=== PATIENT | female | born 1970 | race Caucasian/White ===

== ENCOUNTER 2022-07-05 01:45 | Day surgery (SDC) | payer OTHER, SELFPAY ==
[2022-06-22 14:09] VITALS: BMI 41.2
[2022-07-05 08:57] VITALS: BP 132/82; PULSE 76; RESP 18; TEMP 36.3; O2SAT 100; BMI 40.7
[2022-07-05] MEDS: LACTATED RINGERS 1,000 ML 150 ML IV CONT (09:09)
--- NOTE | 2022-07-05 09:30 | P.PNAN_ITS ---
Anes - Initial Pre Proc Eval Procedure: Operation Date: 07/05/22 10:15 Proposed Procedures p Screening Colonoscopy - Jez Mishra MD Date/Time: 07/05/22 09:30 Surgeon: Jez Mishra MD Pre Op Diagnosis: neoplasm screening Patient Data Age: 51 Gender: F Height: 1.63 m Weight: 107.6 kg Last Vital Signs Temp 97.4 F L 07/05/22 08:57 Pulse 76 07/05/22 08:57 Resp 18 07/05/22 08:57 BP 132/82 07/05/22 08:57 Pulse Ox 100 07/05/22 08:57 O2 Del Method Room Air 07/05/22 08:57 Allergies Allergy/AdvReac Type Severity Reaction Status Date / Time No Known Allergies Allergy Verified 07/05/22 08:56 Home Medications Medication Instructions Recorded Confirmed Type atorvastatin 10 mg tablet 10 mg PO DAILY 06/22/22 06/22/22 History ergocalciferol (vitamin D2) 1,250 1,250 mcg PO WEEKLY 06/22/22 06/22/22 History mcg (50,000 unit) capsule lisinopril 20 mg tablet 20 mg PO DAILY 06/22/22 06/22/22 History topiramate 25 mg tablet 25 mg PO BID 06/22/22 06/22/22 History Patient hx anesthesia problems: none Family hx anesthesia problems: none Results Review: All pre-operative results and documents have been reviewed as part of the pre- operative evaluation. [facility] Social History Social History Smoking status: Former smoker Tobacco type: cigarettes Alcohol intake: current Drinks per week: 3 Substance use type: does not use Living arrangements: with family Spiritual care concerns: No Anes - Eval Final PreProcedure Day of Procedure 07/05/22 09:30 Patient weight: morbidly obese Heart: regular rate and rhythm Lungs: clear to auscultation Airway: Mallampati scale class II Neurological: alert and oriented Last oral intake: >/= 8 hours ASA classification: III Emergent: no Anesthetic plan: proceed Anesthesia type and monitoring: general GIVS and standard monitoring Results Review: All pre-operative results and documents have been reviewed as part of the pre- operative evaluation. Informed Consent: The patient's anesthetic plan and its attendant risks and benefits were discussed with the patient/family/POA. Questions were solicited and answers provided to the satisfaction of the patient/family/POA.
--- NOTE | 2022-07-05 09:52 | PM.HPGS ---
History of Present Illness History of Present Illness Consent: Risks, benefits, and alternatives have been discussed and questions answered. Patient agrees to proceed with procedure. Chief complaint: neoplasm screening Narrative: Lm Riddle is a 51 year old female here for first screening colonoscopy Review of Systems Constitutional: Constitutional: Denies headache(s) and Denies weakness Eyes: Eyes: Denies blurry vision ENT: Reports Normal hearing present, Denies headache(s) and Denies neck pain Cardiovascular: Cardiovascular: Denies chest pain and Denies dyspnea Respiratory: Respiratory: Denies dyspnea Gastrointestinal: Gastrointestinal: Reports no additional gastrointestinal complaints Genitourinary: Genitourinary: Denies dysuria Musculoskeletal: Musculoskeletal: Denies neck pain Integumentary/Breasts: Skin/Breast: Denies dry skin Neurologic: Reports Normal hearing present, Denies headache(s) and Denies weakness Psychiatric: Psychiatric: Denies anxiety Endocrine: Endocrine: Denies change in body appearance Hematologic/Lymphatic: Hematologic/Lymphatic: Denies easy bleeding Allergic/Immunologic: Allergic/Immunologic: Denies urticaria [facility] Past Medical History Medical History (Updated 07/05/22 @ 09:53 by Jez Mishra MD) Colon cancer screening Social History Social History Smoking status: Former smoker Tobacco type: cigarettes Alcohol intake: current Drinks per week: 3 Substance use type: does not use Living arrangements: with family Spiritual care concerns: No Meds Home Medications and Allergies Home Medications Medication Instructions Recorded Confirmed Type atorvastatin 10 mg tablet 10 mg PO DAILY 06/22/22 06/22/22 History ergocalciferol (vitamin D2) 1,250 1,250 mcg PO WEEKLY 06/22/22 06/22/22 History mcg (50,000 unit) capsule lisinopril 20 mg tablet 20 mg PO DAILY 06/22/22 06/22/22 History topiramate 25 mg tablet 25 mg PO BID 06/22/22 06/22/22 History Allergies Allergy/AdvReac Type Severity Reaction Status Date / Time No Known Allergies Allergy Verified 07/05/22 08:56 Vital Signs Vital Signs - 24 hr 07/05/22 08:57 Temperature 97.4 F L Pulse Rate 76 Respiratory Rate 18 Blood Pressure 132/82 Pulse Oximetry 100 Oxygen Delivery Room Air Exam Const: General: comfortable and no acute distress HENMT: Face/Nose/Sinus: Normal nares present Eyes: General: appearance normal, both eyes and all related structures Neck: Neck: no JVD Resp: Auscultation: clear to auscultation bilaterally Cardio: Rate: regular rate Rhythm: regular rhythm GI: Inspection: non-distended GI Palp: Yes Soft to palpation Skin: General skin exam: normal color Neuro: General: gait normal Speech: normal speech Extrem: General: normal to inspection Psych: Mental Status: mental status grossly normal Assessment and Plan Assessment and plan (1) Colon cancer screening: Code(s): Z12.11 - Encounter for screening for malignant neoplasm of colon Status: Acute Assessment and Plan: colonoscopy
[2022-07-05 10:14] VITALS: BP 126/71; PULSE 69; RESP 21; O2SAT 100
[2022-07-05 10:24] VITALS: BP 122/76; PULSE 66; RESP 20; O2SAT 100
[2022-07-05 10:34] VITALS: BP 123/77; PULSE 70; RESP 21; O2SAT 100
== END 2022-07-05 10:41 | disposition home or self-care (01) ==
PROVIDERS: PCP Internal Medicine Endocrinology, Diabetes & Metabolism; Visit Provider Internal Medicine Gastroenterology
PROC: 0DJD8ZZ Inspection of Lower Intestinal Tract, Via Natural or Artificial Opening Endoscopic (ICD-10-PCS; CPT 45378; principal; 2022-07-05 10:15)
DX: Z12.11 Encounter for screening for malignant neoplasm of colon (principal); D12.4 Benign neoplasm of descending colon; K57.30 Diverticulosis of large intestine without perforation or abscess without bleeding; K64.8 Other hemorrhoids; Z87.891 Personal history of nicotine dependence; E66.01 Morbid (severe) obesity due to excess calories; Z68.41 Body mass index [BMI] 40.0-44.9, adult
CPT/HCPCS: 45385; 88305; J2704; J7120

== ENCOUNTER 2025-02-22 14:38 | Emergency (ER) | payer OTHER, SELFPAY ==
--- NOTE | ~2025-02-22 | CT_ITS ---
EXAMINATION: CT diagnostic chest w con DATE: 02/22/2025 16:24 INDICATION: nodule TECHNIQUE: Computed tomography (CT) of the chest was performed without intravenous contrast. Addition al 3D reconstructions utilizing coronal maximum intensity projection (MIP) were performed. Automated exposure control and iterative reconstruction technique were employed. The dose-length product was 28 4.51 mGy-cm. COMPARISON: Chest radiograph dated 02/22/2025 FINDINGS: Calcified left upper lobe nodule consistent with old granulomatous disease and which accounts for the nodular opacity of concern on prior chest radiograph. Lungs are otherwise clear with no other suspic ious pulmonary nodules, pneumonia, pulmonary edema or pleural effusion. Heart size is normal. No aureliano cardial effusion. Thoracic aorta is normal caliber with no dissection. There are also calcified left hilar and mediastinal lymph nodes consistent with old granulomatous disease. No pathologically enlarg ed thoracic lymphadenopathy. Visualized upper abdomen is unremarkable. Mild thoracic spondylosis. IMPRESSION: 1. Nodular opacity of concern on prior chest radiographs corresponds to a benign calcified granuloma. No concerning pulmonary nodules or acute cardiopulmonary disease. Reviewed, dictated and finalized at location A. IMPRESSION: 1. Nodular opacity of concern on prior chest radiographs corresponds to a benig n calcified granuloma. No concerning pulmonary nodules or acute cardiopulmonary disease.
--- NOTE | ~2025-02-22 | XR_ITS ---
EXAMINATION: XR chest 2V 02/22/2025 15:23 INDICATION: Chest pain PROCEDURE: 2 view chest COMPARISON: No prior studies for comparison. FINDINGS: There is a focal nodular asymmetry at the left apex. The cardiomediastinal silhouette is wi thin normal limits. There are no pleural effusions. There is no pneumothorax suspected. IMPRESSION: 1: Focal nodular asymmetry at the left apex. Correlation with CT chest recommended to exclude parenc hymal nodule. Reviewed, dictated and finalized at location B. IMPRESSION: 1: Focal nodular asymmetry at the left apex. Correlation with CT chest recomme nded to exclude parenchymal nodule.
--- NOTE | 2025-02-22 14:39 | ECG_ITS ---
Test Date: 2025-02-22 14:45:19 Measurements Intervals [place] Rate: 73 P: 38 HI: 154 QRS: 3 QRSD: 80 T: 30 QT: 376 QTc: 416 Interpretive Statements SINUS RHYTHM LOW QRS VOLTAGE IN PRECORDIAL LEADS [QRS DEFLECTION < 1.0 mV IN CHEST LEADS] No previous ECG available for comparison Electronically Signed On 02-23-2025 17:05:46 CDT by Lneny Gramajo M.D.
[2025-02-22 14:40] VITALS: BP 121/96; PULSE 79; RESP 18; TEMP 36.4; O2SAT 99
--- NOTE | 2025-02-22 14:49 | ED.CHESTPAIN ---
HPI - Chest Pain General Chief Complaint: Chest Pain Stated Complaint: Chest pain x 2hrs-no history Time Seen by Provider: 02/22/25 15:26 Focused HPI: Patient is a 54-year-old female who presents to the ER with chest pain that started abruptly around 1:00 p.m. today. She reports the chest pain resolved but has now settled in her chest as a feeling of ?anxiety and possible indigestion. Patient denies any recent fevers, shortness of breath, left shoulder pain, lower extremity edema or cough. She endorses a history of high blood pressure and takes BP medication daily. GENERAL: Well-appearing, well-nourished, and in no acute distress. HEAD: Normocephalic, atraumatic. CHEST: Clear to auscultation. ?No respiratory distress. HEART: Regular rate and rhythm.? NEURO: ?Alert and oriented x3. Patient screened in triage and initial orders placed.? ?Additional care and disposition to be based upon?diagnostic testing and treatment. Related Data Home Medications ?Medication ?Instructions ?Recorded ?Confirmed ?Last Taken ?Type atorvastatin 10 mg tablet 10 mg PO DAILY 06/22/22 06/22/22 Unknown History ergocalciferol (vitamin D2) 1,250 1,250 mcg PO WEEKLY 06/22/22 06/22/22 Unknown History mcg (50,000 unit) capsule lisinopril 20 mg tablet 20 mg PO DAILY 06/22/22 06/22/22 Unknown History topiramate 25 mg tablet 25 mg PO BID 06/22/22 06/22/22 Unknown History Allergies Allergy/AdvReac Type Severity Reaction Status Date / Time No Known Allergies Allergy Verified 02/22/25 14:38 [facility] Past Medical History Medical History (Updated 02/23/25 @ 00:01 by Monisha Lugo) Colon cancer screening Social History Social History Smoking status: Former smoker Tobacco type: cigarettes Alcohol intake: current Drinks per week: 3 Substance use type: does not use Living arrangements: with family Spiritual care concerns: No Course Vital Signs Vital signs: Vital Signs Temperature 36.4 C 02/22/25 14:40 Pulse Rate 79 02/22/25 14:40 Respiratory Rate 18 02/22/25 14:40 Blood Pressure 121/96 H 02/22/25 14:40 Pulse Oximetry 99 02/22/25 14:40 Oxygen Delivery Room Air 02/22/25 14:40 Temperature 36.4 C 02/22/25 14:40 Pulse Rate 70 02/22/25 19:05 Respiratory Rate 16 02/22/25 19:05 Blood Pressure 115/76 02/22/25 19:05 Pulse Oximetry 99 02/22/25 19:05 Oxygen Delivery Room Air 02/22/25 15:14 MDM - Chest Pain Lab Data 02/22/25 15:08 02/22/25 15:08 Labs: Lab Results 02/22/25 02/22/25 Range/Units 15:08 18:03 WBC 6.1 (4.5-10.0) K/mm3 RBC 4.62 (4.2-5.4) M/mm3 Hgb 13.5 (12.0-15.0) g/dL Hct 41.0 (37.0-47.0) % MCV 88.7 (80-100) fl MCH 29.2 (26-34) pg MCHC 32.9 (32-36) g/dl RDW 13.5 (11.5-14.5) % Plt Count 260 (150-375) k/mm3 MPV 10.0 (7.4-10.4) fl Immature Gran % (Auto) 0.2 (0-0.5) % Neut % (Auto) 54.9 (45.5-73.1) % Lymph % (Auto) 37.0 (18.3-44.2) % [place] % (Auto) 6.9 (2.6-8.5) % Eos % (Auto) 0.3 (0-4.4) % Baso % (Auto) 0.7 (0.2-1.2) % Lymph # (Auto) 2.24 (0.9-3.2) K/mm3 [place] # (Auto) 0.4 (0.1-0.6) K/mm3 Eos # (Auto) 0.0 (0-0.3) K/mm3 Baso # (Auto) 0.0 (0.0-0.1) K/mm3 Abs Immat Gran (auto) 0.01 (0.00-0.031) K/mm3 Absolute Neuts (auto) 3.3 (1.3-6.7) K/mm3 Absolute Nucleated RBC 0.000 (0.0-0.012) K/mm3 Nucleated RBC % 0.0 (0.0-0.2) % PT 13.3 (11.1-14.7) Seconds INR 1.0 APTT 27.6 (22.3-36.8) Seconds Sodium 140 (137-145) mmol/L Potassium 3.7 (3.4-5.0) mmol/L Chloride 108 H (98-107) mmol/L Carbon Dioxide 21 L (22-30) mmol/L Anion Gap 11 (4-12) mmol/L BUN 17 (7-17) mg/dL Creatinine 0.74 (0.7-1.0) mg/dL Estim Creat Clear Calc 83 ml/min Estimated GFR > 60 (59 - ) Glucose 85 (65-110) mg/dL Calcium 9.4 (8.4-10.2) mg/dL Total Bilirubin 0.6 (0.2-1.3) mg/dL AST 29 (14-36) U/L ALT 24 (6-35) U/L Alkaline Phosphatase 60 (38-126) U/L Troponin I < 0.012 < 0.012 (0.000-0.034) ng/mL Total Protein 8.0 (6.3-8.2) g/dL Albumin 4.9 (3.5-5.1) g/dL Lipase 334 H (23-300) U/L Discharge Plan Discharge Clinical Impression: Atypical chest pain Patient Disposition: Home Condition: Stable Instructions: Antibiotic Form, Chest Wall Pain (ED) Patient Language: Spanish Prescriptions: No Action atorvastatin 10 mg tablet 10 mg PO DAILY lisinopril 20 mg tablet 20 mg PO DAILY topiramate 25 mg tablet 25 mg PO BID ergocalciferol (vitamin D2) 1,250 mcg (50,000 unit) capsule 1,250 mcg PO WEEKLY Follow-up/Referrals: Jesse,Zac Venegas MD [Primary Care Provider] -
--- OUTSIDE RECORDS SUMMARY | 2025-02-22 14:51 | XMS_ITS | Referral Summary ---
Author Organization [facility] Address [address] [place] [address] Care Team Providers Care Store Consultant Name Role Phone Zac Molina MD Primary Care Provider + Encounters Date Type Department Care Team Description 01/28/2025 Telephone [facility] [id number] [place] [address] Arabella De La Vega NP PA FOR WEGOVY 2.4MG (Lm Riddle ([place]: [id number]) /Rx #: [id number] /Wegovy 2.4MG/0.75ML auto-injectors //) 01/28/2025 9:00 AM CDT Office Visit [facility] [facility] [address] [place] [address] Arabella De La Vega NP Hyperlipidemia, unspecified hyperlipidemia type (Primary Dx); NORM (obstructive sleep apnea); Essential hypertension; Frequent headaches; BMI 36.0-36.9,adult from Last 3 Months Allergies No known active allergies Medications azelastine (ASTELIN) 137 mcg (0.1 %) nasal spray ADMINISTER 1 SPRAY INTO EACH NOSTRIL 2 TIMES A DAY DIRECTED 30 mL 1 07/01/20 23 Active fluticasone propionate (FLONASE) 50 mcg/actuation nasal spray SPRAY 2 SPRAYS INTO EACH NOSTRIL EVERY DAY 16 mL 1 07/01/20 23 Active ibuprofen 200 mg tab/cap Take 1 tablet/capsule (200 mg total) by mouth every 6 (six) hours as needed for pain 12/23/19 23 Active acetaminophen (Tylenol Extra Strength) 500 mg tablet Take 1 tablet (500 mg total) by mouth every 4 (four) hours as needed 12/23/19 23 Active amLODIPine (NORVASC) 2.5 mg tablet Take 1 tablet (2.5 mg total) by mouth daily 90 tablet 3 07/30/20 24 Active Wegovy 2.4 mg/0.75 mL auto-injector INJECT 0.75 ML (2.4 MG TOTAL) UNDER THE SKIN EVERY 7 DAYS 9 mL 1 01/08/20 25 Active topiramate (TOPAMAX) 25 mg tablet Take 1 tablet (25 mg total) by mouth daily 90 tablet 1 01/29/20 25 Active atorvastatin (LIPITOR) 10 mg tabletIndications: Hyperlipidemia, unspecified hyperlipidemia type Take 1 tablet (10 mg total) by mouth daily 90 tablet 3 01/29/20 25 Active lisinopriL (PRINIVIL,ZESTRIL) 20 mg tablet Take 1 tablet (20 mg total) by mouth daily 90 tablet 3 01/29/20 25 Active lisinopriL (PRINIVIL,ZESTRIL) 20 mg tablet TAKE 1 TABLET BY MOUTH EVERY DAY 90 tablet 3 02/27/20 24 025 Discontin ued(Reord er) atorvastatin (LIPITOR) 10 mg tabletIndications: Hyperlipidemia, unspecified hyperlipidemia type TAKE 1 TABLET BY MOUTH EVERY DAY 90 tablet 3 02/27/20 24 025 Discontin ued(Reord er) topiramate (TOPAMAX) 12.5 mg split tablet Take 2 half tablet (25 mg total) by mouth daily 01/02/20 24 025 Discontin ued(Alter fabrizio therapy) Active Problems Problem Noted Date Diagnosed Date BMI 36.0-36.9,adult 01/28/2025 Assessment & Plan (01/28/2025 9:21 AM CDT): Continue Wegovy 2.4mg weekly Highest weight 241 lbs, down to 212 lbs today Focus on protein and strength training NORM (obstructive sleep apnea) 01/27/2023 Assessment & Plan (01/28/2025 9:17 AM CDT): Encouraged to use CPAP regularly Assessment & Plan (07/30/2024 9:33 AM CDT): Continue CPAP Assessment & Plan (09/12/2023 9:26 AM LINK CUTTER): Continue CPAP Assessment & Plan (03/10/2023 9:56 AM CDT): Is awaiting supplies, will reach out to Neuro Frequent headaches 11/10/2022 Assessment & Plan (01/28/2025 9:18 AM CDT): Resume topamax 25mg HS Assessment & Plan (11/10/2022 10:04 AM LINK CUTTER): Hold Topamax Trial amlodipine 2.5mg Continue lisinopril Sleep Med referral We discussed sleep hygiene Hyperlipidemia 11/06/2021 Assessment & Plan (01/28/2025 9:17 AM CDT): Continue atorvastatin 10mg daily Assessment & Plan (11/06/2021 9:34 AM LINK CUTTER): At goal, continue current meds Encounter for screening mamm ogram for malignant neoplasm of breast 11/06/2021 Assessment & Plan (07/30/2024 9:31 AM CDT): MMG referral Assessment & Plan (11/06/2021 9:35 AM LINK CUTTER): Mammogram entered Essential hypertension 11/06/2021 Assessment & Plan (01/28/2025 9:17 AM CDT): Continue lisinopril and amlodipine Assessment & Plan (07/30/2024 9:34 AM CDT): Continue lisinopril 20mg and amlodipine 2.5mg and daily Labs due January 2025 Assessment & Plan (09/12/2023 9:25 AM LINK CUTTER): At goal continue lisinopril 20mg and amlodipine 2.5mg daily Assessment & Plan (03/10/2023 9:55 AM CDT): At goal Continue amlodipine 2.5mg and lisinopril 20 mg daily Current on eye exam Assessment & Plan (11/06/2021 9:35 AM LINK CUTTER): At goal on current meds, continue Encouraged 150 min/weekly of moderate intensity activity Labs due Resolved Problems Problem Noted Date Diagnosed Date Resolved Date Dysfunction of both eustachian tubes 06/08/2023 09/12/2023 Assessment & Plan (06/08/2023 12:02 PM CDT): Nasal sprays BID (use, technique, s/e reviewed) OTC anti-histamine daily IFG (impaired fasting glucose) 11/10/2022 07/30/2024 Assessment & Plan (09/12/2023 9:25 AM LINK CUTTER): Repeat A1C with labs Assessment & Plan (03/10/2023 9:40 AM CDT): A1C 5.8% Assessment & Plan (11/10/2022 10:02 AM LINK CUTTER): A1C 5.9% Discussed diet and activity Routine general medical exam ination at a health care facility 11/06/2021 09/12/2023 Assessment & Plan (12/15/2021 4:51 PM CDT): Colonoscopy entered Mammogram due 150 min/weekly of moderate intensity activity Labs Current on vaccinations Immunizations Immunization Administration Dates Next Due Pfizer SARS-CoV-2 Monovalent Vaccination (12+ Yrs) PURPLE 08/07/2021,10/13/2020,09/23/2020 Pfizer Sars-Cov-2 Bivalent V accination (12+ YRS) 09/03/2022 Social History Tobacco Use Types Packs/Day Years Used Date Smoking Tobacco: Former Cigarettes 0.5 10 2 - 2014 Smokeless Tobacco: Never Alcohol Use Standard Drinks/Week Comments No 0 (1 standard drink = 0.6 oz pur e alcohol) Comments Unknown Sex and Gender Information Value Date Recorded Sex Assigned at Not on file Legal Sex Female 12:59 AM LINK CUTTER Gender Identity Female 11/05/2021 2:29 PM LINK CUTTER Sexual Orientation Straight 11/05/2021 2: 29 PM LINK CUTTER Last Filed Vital Signs Vital Sign Reading Time Taken Comments Blood Pressure 118/76 01/28/2025 8:56 AM CDT Pulse 78 01/28/2025 8:56 AM CDT Temperature - - Respiratory Rate - - Oxygen Saturation 98% 01/28/2025 8:56 AM CDT Inhaled Oxygen Concentration - - Weight 96.2 kg (212 lb) 01/28/2025 8:56 AM CDT Height 162.6 cm (5' 4 ) 01/28/2025 8:56 AM CDT Body Mass Index 36.39 01/28/2025 8:56 AM CDT Plan of Treatment Scheduled Procedures Name Priority Associated Diagnoses Date/Ti me COLONOSCOPY Colon cancer screening Procedures Procedure Name Priority Date/Time Associated Diagnosis Comments POCT GLUCOSE 48362 Routine 01/28/2025 8:56 AM CDT Hyperlipidemia, unspecified hyperlipidemia type POCT LIPID PANEL Routine 01/28/2025 8:56 AM CDT Hyperlipidemia, unspecified hyperlipidemia type SCREENING MAMMOGRAM BILATERAL W JUAN Schedule Routine, Read Routine (OP Routine) 10/22/2024 11:04 AM LINK CUTTER Encounter for screening mammogram for malignant neoplasm of breast from Last 3 Months or Most Recently Relevant to Health Maintenance Results * POCT glucose (01/28/2025 8:56 AM CDT) Glucose Blood, POC 92 mg/dL Blood 01/28/2025 8:56 AM CDT Arabella De La Vega NP POINT OF CARE TEST ORDER FLOR Final Result * POCT lipid panel (01/28/2025 8:56 AM CDT) HDL, POC 44 mg/dL Triglycerides, POC 103 mg/dL LDL Cholesterol POC 112 mg/dL Chol/HDL Ratio, POC 4 Non-HDL Cholesterol, POC 132 mg/dL Cholesterol Total, POC 177 mg/dL Capillary blood 01/28/2025 8:56 AM CDT Arabella De La Vega NP POINT OF CARE TEST ORDER FLOR Final Result * Screening Mammogram Bilateral W Juan (10/22/2024 11:04 AM LINK CUTTER) Anatomical Region Laterality Modality Breast Bilateral Mammography Narrative 10/23/2024 12:38 PM LINK CUTTER Mammogram Technique: Bilateral Digital Breast Tomosynthesis, Bilateral C-view 2D Screening mammogram. Views obtained: bilateral craniocaudal and bilateral mediolateral oblique. Computer Aided Detection was performed. Mammogram Findings: The present examination has been compared to prior imaging studies performed at [facility] on 01/19/2018, 01/25/2019 and 06/15/2022. There are scattered areas of fibroglandular density. There is no suspicious abnormality in either breast. Impression: There is no mammographic evidence of malignancy. Annual screening mammography is recommended. OVERALL FINAL ASSESSMENT: BI-RADS CATEGORY 1: Negative. Procedure Note Oriana Jiménez MD - 10/23/2024 Mammogram Technique: Bilateral Digital Breast Tomosynthesis, Bilateral C-view 2D Screening mammogram. Views obtained: bilateral craniocaudal and bilateral mediolateral oblique. Computer Aided Detection was performed. Mammogram Findings: The present examination has been compared to prior imaging studies performed at [facility] on 01/19/2018, 01/25/2019 and 06/15/2022. There are scattered areas of fibroglandular density. There is no suspicious abnormality in either breast. Impression: There is no mammographic evidence of malignancy. Annual screening mammography is recommended. OVERALL FINAL ASSESSMENT: BI-RADS CATEGORY 1: Negative. Arabella De La Vega NP IMG MAMMO PROCEDURES Fin al Result from Last 3 Months or Most Recently Relevant to Health Maintenance Insurance [employer] OPEN ACCESS CIGNA OPEN ACCESS CIGNA OPEN ACCESS [employer] OPEN ACCESS Care Teams Store Consultant Relationship Specialty Start Date End Date Zac Molina MD PCP - General 01/12/18
--- OUTSIDE RECORDS SUMMARY | 2025-02-22 14:51 | XMS_ITS | Clinical Summary ---
Author Organization [facility] Address [address] [place] [address] Care Team Providers Care Nylon Mender Name Role Phone Zac Molina MD Primary Care Provider + Allergies No known active allergies Medications azelastine [...] CPAP Assessment & Plan (09/12/2023 9:26 AM FLAME HARDENING MACHINE OPERATOR): Continue CPAP Assessment & Plan (03/10/2023 9:56 AM CDT): Is awaiting supplies, will reach out to Neuro Frequent headaches 11/10/2022 Assessment & Plan (01/28/2025 9:18 AM CDT): Resume topamax 25mg HS Assessment & Plan (11/10/2022 10:04 AM FLAME HARDENING MACHINE OPERATOR): Hold Topamax Trial amlodipine 2.5mg Continue lisinopril Sleep Med referral We discussed sleep hygiene Hyperlipidemia 11/06/2021 Assessment & Plan (01/28/2025 9:17 AM CDT): Continue atorvastatin 10mg daily Assessment & Plan (11/06/2021 9:34 AM FLAME HARDENING MACHINE OPERATOR): At goal, continue current meds Encounter for screening mamm ogram for malignant neoplasm of breast 11/06/2021 Assessment & Plan (07/30/2024 9:31 AM CDT): MMG referral Assessment & Plan (11/06/2021 9:35 AM FLAME HARDENING MACHINE OPERATOR): Mammogram entered Essential hypertension 11/06/2021 Assessment & Plan (01/28/2025 9:17 AM CDT): Continue lisinopril and amlodipine Assessment & Plan (07/30/2024 9:34 AM CDT): Continue lisinopril 20mg and amlodipine 2.5mg and daily Labs due January 2025 Assessment & Plan (09/12/2023 9:25 AM FLAME HARDENING MACHINE OPERATOR): At goal continue lisinopril 20mg and amlodipine 2.5mg daily Assessment & Plan (03/10/2023 9:55 AM CDT): At goal Continue amlodipine 2.5mg and lisinopril 20 mg daily Current on eye exam Assessment & Plan (11/06/2021 9:35 AM FLAME HARDENING MACHINE OPERATOR): At goal on current meds, continue Encouraged 150 min/weekly of moderate intensity activity Labs due Resolved Problems Problem Noted Date Diagnosed Date Resolved Date Dysfunction of both eustachian tubes 06/08/2023 09/12/2023 Assessment & Plan (06/08/2023 12:02 PM CDT): Nasal sprays BID (use, technique, s/e reviewed) OTC anti-histamine daily IFG (impaired fasting glucose) 11/10/2022 07/30/2024 Assessment & Plan (09/12/2023 9:25 AM FLAME HARDENING MACHINE OPERATOR): Repeat A1C with labs Assessment & Plan (03/10/2023 9:40 AM CDT): A1C 5.8% Assessment & Plan (11/10/2022 10:02 AM FLAME HARDENING MACHINE OPERATOR): A1C 5.9% Discussed diet and activity Routine general medical exam ination at a health care facility 11/06/2021 09/12/2023 Assessment & Plan (12/15/2021 4:51 PM CDT): Colonoscopy entered Mammogram due 150 min/weekly of moderate intensity activity Labs Current on vaccinations Encounters Date Type Department Care Team Description 01/28/2025 9:00 AM CDT Office Visit [facility] [facility] [address] [place] [address] Arabella De La Vega NP Hyperlipidemia, unspecified hyperlipidemia type (Primary Dx); NORM (obstructive sleep apnea); Essential hypertension; Frequent headaches; BMI 36.0-36.9,adult 01/28/2025 Telephone [facility] [address] [facility] [address] [place] [address] Arabella De La Vega NP PA FOR WEGOVY 2.4MG (Lm Riddle ([place]: [id number]) /Rx #: [id number] /Wegovy 2.4MG/0.75ML auto-injectors //) from Last 3 Months Immunizations Immunization Administration Dates Next Due Pfizer SARS-CoV-2 Monovalent Vaccination (12+ Yrs) PURPLE 08/07/2021,10/13/2020,09/23/2020 Pfizer Sars-Cov-2 Bivalent V accination (12+ YRS) 09/03/2022 Family History Medical History Relation Name Comments Cancer Father Hyperlipidemia Father Hypertension Father Hyperlipidemia Mother Hypertension Mother Relation Name Status Comments Father Mother Social History Tobacco Use Types Packs/Day Years Used Date Smoking Tobacco: Former Cigarettes 0.5 10 2 - 2014 Smokeless Tobacco: Never Alcohol Use Standard Drinks/Week Comments No 0 (1 standard drink = 0.6 oz pur e alcohol) Comments Unknown Sex and Gender Information Value Date Recorded Sex Assigned at Not on file Legal Sex Female 12:59 AM FLAME HARDENING MACHINE OPERATOR Gender Identity Female 11/05/2021 2:29 PM FLAME HARDENING MACHINE OPERATOR Sexual Orientation Straight 11/05/2021 2: 29 PM FLAME HARDENING MACHINE OPERATOR Obstetrics History Last Filed Vital Signs Vital Sign Reading [...] Diagnoses Date/Ti me COLONOSCOPY Colon cancer screening Health Maintenance Due Date Last Done Comments Cervical Cancer Screening 1970 Colon Cancer Screening-Colonoscopy 1970 Depression Screening 1970 Hepatitis C Screening 1970 DTaP/Tdap/Td Vaccine (1 - Tdap) 1981 Hepatitis B Screening 1988 Zoster Vaccine (1 of 2) 2020 Regular Well Visit/Exam 18-64 11/06/2022 11/06/2021, 08/21/2020 Covid-19 Vaccine ( season) 2024 09/03/2022, 08/07/2021, 10/13/2020, Additional history exists Influenza Vaccine (Season Ended) 2025 Breast Cancer Screening-Mammogram 10/22/2025 10/22/2024, 06/15/2022, 01/25/2019, Additional history exists Pneumococcal vaccine <65 Aged Out No longer eligible based on patient's age to complete this topic Procedures Procedure Name Priority Date/Time Associated Diagnosis Comments POCT GLUCOSE 34016 Routine 01/28/2025 8:56 AM CDT Hyperlipidemia, unspecified hyperlipidemia type POCT LIPID PANEL Routine 01/28/2025 8:56 AM CDT Hyperlipidemia, unspecified hyperlipidemia type SCREENING MAMMOGRAM BILATERAL W JUAN Schedule Routine, Read Routine (OP Routine) 10/22/2024 11:04 AM FLAME HARDENING MACHINE OPERATOR Encounter for screening mammogram for malignant neoplasm [...] Total, POC 177 mg/dL Capillary blood 01/28/2025 8 :56 AM CDT Arabella De La Vega WEIGH TANK OPERATOR POINT OF CARE TEST ORDER FLOR Final Result * Screening Mammogram Bilateral W Juan (10/22/2024 11:04 AM FLAME HARDENING MACHINE OPERATOR) Anatomical Region Laterality Modality Breast Bilateral Mammography Narrative 10/23/2024 12:38 PM FLAME HARDENING MACHINE OPERATOR Mammogram Technique: Bilateral Digital Breast Tomosynthesis, Bilateral C-view 2D Screening mammogram. Views obtained: bilateral craniocaudal and bilateral mediolateral oblique. Computer Aided Detection was performed. Mammogram Findings: The present examination has been compared to prior imaging studies performed at [facility] on 01/19/2018, 01/25/2019 and 06/15/2022. There [...] compared to prior imaging studies performed at [facility] on 01/19/2018, 01/25/2019 and 06/15/2022. There [...] Most Recently Relevant to Health Maintenance Insurance fitkit OPEN ACCESS fitkit OPEN ACCESS [facility] OPEN ACCESS Member Subscriber Plan / P[facility] Name:Lm Riddle Relation to Subscriber:Self Name:Lm Riddle Payer ID:[id number] ([facility]) Type:CIGNA HMO/PPO Address: [id number] [place] [id number] [employer] OPEN ACCESS Member Subscriber Plan / Payer ([facility]Present) Name:Lm Riddle Relation to Subscriber:Self Name:Lm Riddle Payer ID:[id number] (NA) Type:CIGNA HMO/PPO Address: [address] [place] [address] Care Teams Nylon Mender Relationship Specialty Start Date End Date Zac Molina MD PCP - General 01/12/18
[2025-02-22 15:27] LABS: Basophils Percent Auto 0.7 % (0.2-1.2); Eosinophils Percent Auto 0.3 % (0-4.4); Hemoglobin 13.5 g/dL (12.0-15.0); Immature Granulocyte Absolute 0.01 K/mm3 (0.00-0.031); Immature Granulocyte Percent A 0.2 % (0-0.5); Lymphocytes Absolute Auto 2.24 K/mm3 (0.9-3.2); Mean Corpuscular HGB Conc 32.9 g/dl (32-36); Mean Corpuscular Hemoglobin 29.2 pg (26-34); Mean Corpuscular Volume 88.7 fl (80-100); Monocytes Absolute Auto 0.4 K/mm3 (0.1-0.6); Monocytes Percent Auto 6.9 % (2.6-8.5); Neutrophils Absolute Auto 3.3 K/mm3 (1.3-6.7); Neutrophils Percent Auto 54.9 % (45.5-73.1); Platelet Count Result 260 k/mm3 (150-375); Red Blood Count 4.62 M/mm3 (4.2-5.4); Red Cell Distribution Width 13.5 % (11.5-14.5); White Blood Count 6.1 K/mm3 (4.5-10.0)
[2025-02-22 15:40] LABS: Partial Thromboplastin Time 27.6 Seconds (22.3-36.8); Prothrombin Time 13.3 Seconds (11.1-14.7)
[2025-02-22 15:54] LABS: Alanine Aminotransferase 24 U/L (6-35); Albumin Level 4.9 g/dL (3.5-5.1); Alkaline Phosphatase 60 U/L (38-126); Anion Gap 11 mmol/L (4-12); Aspartate Amino Transferase 29 U/L (14-36); Bilirubin,Total 0.6 mg/dL (0.2-1.3); Blood Urea Nitrogen 17 mg/dL (7-17); Calcium 9.4 mg/dL (8.4-10.2); Carbon Dioxide 21 mmol/L (22-30); Chloride 108 mmol/L (98-107); Estimated CRCL calculation 83 ml/min; Estimated Glomerular Filt Rate > 60; Glucose 85 mg/dL (65-110); Lipase 334 U/L (23-300); Potassium 3.7 mmol/L (3.4-5.0); Sodium 140 mmol/L (137-145)
[2025-02-22 16:07] LABS: Troponin I < 0.012 ng/mL (0.000-0.034)
[2025-02-22 16:12] VITALS: BP 120/82; PULSE 69; RESP 21; O2SAT 98
[2025-02-22 17:11] VITALS: BP 124/99; PULSE 73; RESP 15; O2SAT 99
--- NOTE | 2025-02-22 17:40 | ECG_ITS ---
Test Date: 2025-02-22 17:53:21 Measurements Intervals [place] Rate: 62 P: 39 SD: 173 QRS: 8 QRSD: 89 T: 29 QT: 416 QTc: 424 Interpretive Statements SINUS RHYTHM LOW QRS VOLTAGE IN PRECORDIAL LEADS [QRS DEFLECTION < 1.0 mV IN CHEST LEADS] Compared to ECG 02/22/2025 14:45:19 No significant changes Electronically Signed On 02-23-2025 17:07:43 CDT by Lenny Gramajo M.D.
--- NOTE | 2025-02-22 17:40 | ED_ITS ---
HPI - Chest Pain General Chief Complaint: Chest Pain Stated Complaint: Chest pain x 2hrs-no history Time Seen by Provider: 02/22/25 15:26 History of Present Illness HPI narrative: Pt presents with episode of brief chest squeezing that lasted a couple of minutes around 1300. Pt then had some burning in chest that lasted two seconds a couple of times. Pt now asymptomatic. Pt has HTN and Hypercholsterolemia on meds no other risk factors. Related Data Home Medications ?Medication ?Instructions ?Recorded ?Confirmed ?Last Taken ?Type atorvastatin 10 mg tablet 10 mg PO DAILY 06/22/22 06/22/22 Unknown History ergocalciferol (vitamin D2) 1,250 1,250 mcg PO WEEKLY 06/22/22 06/22/22 Unknown History mcg (50,000 unit) capsule lisinopril 20 mg tablet 20 mg PO DAILY 06/22/22 06/22/22 Unknown History topiramate 25 mg tablet 25 mg PO BID 06/22/22 06/22/22 Unknown History Allergies Allergy/AdvReac Type Severity Reaction Status Date / Time No Known Allergies Allergy Verified 02/22/25 14:38 Review of Systems 2 Review of Systems: All systems reviewed & are unremarkable except as noted in HPI and below PMFSH Past Medical History Medical History (Updated 02/22/25 @ 18:33 by Jennifer Bourgeois III, DO) Colon cancer screening Social History Social History Smoking status: Former smoker Tobacco type: cigarettes Alcohol intake: current Drinks per week: 3 Substance use type: does not use Living arrangements: with family Spiritual care concerns: No Exam 2 Const: General: healthy appearing and no acute distress Nutritional Appearance: well nourished Orientation/consciousness: patient oriented x3 Chest: Chest palpation & inspection: normal inspection of the chest and no tenderness Resp: Effort & Inspection: normal respiratory effort Auscultation: clear to auscultation bilaterally Cardio: Rate: regular rate Rhythm: regular rhythm GI: GI Palp: Yes Soft to palpation Auscultation: normal bowel sounds Skin: General skin exam: normal color Rashes: no rashes Wounds: no wounds Neuro: General: patient oriented x3, moves all extremities and no focal motor deficits Speech: normal speech Extrem: General: normal to inspection and no clubbing, cyanosis or edema Psych: Mental Status: mental status grossly normal Affect: normal affect Attitude: cooperative Course Vital Signs Vital signs: Vital Signs Temperature 97.6 F 02/22/25 14:40 Pulse Rate 79 02/22/25 14:40 Respiratory Rate 18 02/22/25 14:40 Blood Pressure 121/96 H 02/22/25 14:40 Pulse Oximetry 99 02/22/25 14:40 Oxygen Delivery Room Air 02/22/25 14:40 Temperature 97.6 F 02/22/25 14:40 Pulse Rate 73 02/22/25 17:11 Respiratory Rate 15 02/22/25 17:11 Blood Pressure 124/99 H 02/22/25 17:11 Pulse Oximetry 99 02/22/25 17:11 Oxygen Delivery Room Air 02/22/25 15:14 MDM - Chest Pain MDM Narrative Medical decision making narrative: Pt presents with brief episodes of atyical cp. unlikely cardiac but will get two trop and ekg and labs and cxr to be safe given risk factors. trop neg x 2 and ekg normal x 2. ok for discharge Lab Data 02/22/25 15:08 02/22/25 15:08 Labs: Lab Results 02/22/25 02/22/25 Range/Units 15:08 18:03 WBC 6.1 (4.5-10.0) K/mm3 RBC 4.62 (4.2-5.4) M/mm3 Hgb 13.5 (12.0-15.0) g/dL Hct 41.0 (37.0-47.0) % MCV 88.7 (80-100) fl MCH 29.2 (26-34) pg MCHC 32.9 (32-36) g/dl RDW 13.5 (11.5-14.5) % Plt Count 260 (150-375) k/mm3 MPV 10.0 (7.4-10.4) fl Immature Gran % (Auto) 0.2 (0-0.5) % Neut % (Auto) 54.9 (45.5-73.1) % Lymph % (Auto) 37.0 (18.3-44.2) % [place] % (Auto) 6.9 (2.6-8.5) % Eos % (Auto) 0.3 (0-4.4) % Baso % (Auto) 0.7 (0.2-1.2) % Lymph # (Auto) 2.24 (0.9-3.2) K/mm3 [place] # (Auto) 0.4 (0.1-0.6) K/mm3 Eos # (Auto) 0.0 (0-0.3) K/mm3 Baso # (Auto) 0.0 (0.0-0.1) K/mm3 Abs Immat Gran (auto) 0.01 (0.00-0.031) K/mm3 Absolute Neuts (auto) 3.3 (1.3-6.7) K/mm3 Absolute Nucleated RBC 0.000 (0.0-0.012) K/mm3 Nucleated RBC % 0.0 (0.0-0.2) % PT 13.3 (11.1-14.7) Seconds INR 1.0 APTT 27.6 (22.3-36.8) Seconds Sodium 140 (137-145) mmol/L Potassium 3.7 (3.4-5.0) mmol/L Chloride 108 H (98-107) mmol/L Carbon Dioxide 21 L (22-30) mmol/L Anion Gap 11 (4-12) mmol/L BUN 17 (7-17) mg/dL Creatinine 0.74 (0.7-1.0) mg/dL Estim Creat Clear Calc 83 ml/min Estimated GFR > 60 (59 - ) Glucose 85 (65-110) mg/dL Calcium 9.4 (8.4-10.2) mg/dL Total Bilirubin 0.6 (0.2-1.3) mg/dL AST 29 (14-36) U/L ALT 24 (6-35) U/L Alkaline Phosphatase 60 (38-126) U/L Troponin I < 0.012 < 0.012 (0.000-0.034) ng/mL Total Protein 8.0 (6.3-8.2) g/dL Albumin 4.9 (3.5-5.1) g/dL Lipase 334 H (23-300) U/L Discharge Plan Discharge Clinical Impression: Atypical chest pain Patient Disposition: Home Condition: Stable Instructions: Antibiotic Form, Chest Wall Pain (ED) Patient Language: Chinese Prescriptions: No Action atorvastatin 10 mg tablet 10 mg PO DAILY lisinopril 20 mg tablet 20 mg PO DAILY topiramate 25 mg tablet 25 mg PO BID ergocalciferol (vitamin D2) 1,250 mcg (50,000 unit) capsule 1,250 mcg PO WEEKLY Follow-up/Referrals: Jesse,Zac Venegas MD [Primary Care Provider] -
[2025-02-22 18:30] LABS: Troponin I < 0.012 ng/mL (0.000-0.034)
[2025-02-22 19:05] VITALS: BP 115/76; PULSE 70; RESP 16; O2SAT 99
== END 2025-02-22 19:06 | disposition home or self-care (01) ==
PROVIDERS: Emergency Provider Emergency Medicine; PCP Internal Medicine Endocrinology, Diabetes & Metabolism
DX: R07.89 Other chest pain (principal); I10 Essential (primary) hypertension; E78.00 Pure hypercholesterolemia, unspecified; Z87.891 Personal history of nicotine dependence; Z79.899 Other long term (current) drug therapy
CPT/HCPCS: 36415; 71046; 71260; 80053; 83690; 84484; 85025; 85610; 85730; 93005; 99284; Q9967